=== PATIENT | male | born 1955 | race Caucasian/White ===

== ENCOUNTER 2018-01-27 15:55 | Emergency (ER) | payer SELFPAY ==
[~2018-01-27] VITALS: Ht 172.7 cm; Wt 92.5 kg
[2018-01-27] MEDS ORDERED: SULFATRIM 800-120 ML PO (16:12)
--- NOTE | 2018-01-27 16:26 | Emergency Room Report ---
History of Present Illness General Chief Complaint: Lower Extremity Injury Source: Patient Present Illness HPI Pt. presents to the ED c/o 10 out of 10 in severity localized pain and tenderness to the base of the right toe times one week. Patient reports that he initially went to an urgent care clinic which provided him with antibiotics however they did not perform any imaging. Patient states that he has been taking the antibiotics for one week and has had no improvement. He also reports no relief with rx'd T3. Patient reports significant tenderness to light touch. Patient denies fevers, chills, appreciable trauma or fall. Patient denies history of gout. Patient denies open wounds. Denies aggravating or relieving factors. Allergies: Coded Allergies: No Known Allergies (Unverified , 01/27/18) Patient History Past Medical History: see triage record Past Surgical History: none Pertinent Family History: none Reviewed Nursing Documentation: PMH: Agreed; PSxH: Agreed Nursing Documentation-PMH Past Medical History: No History, Except For Review of Systems All Other Systems: negative except mentioned in HPI Physical Exam Vital Signs Date Time Temp Pulse Resp B/P (MAP) Pulse Ox O2 Delivery O2 Flow Rate FiO2 01/27/18 16:01 97.5 85 14 158/106 98 Room Air Sp02 EP Interpretation: reviewed, normal General Appearance: no apparent distress, alert, GCS 15, non-toxic Head: normocephalic, atraumatic Eyes: bilateral eye normal inspection, bilateral eye PERRL ENT: hearing grossly normal, normal voice Neck: full range of motion Respiratory: lungs clear, speaking full sentences Cardiovascular #1: regular rate, rhythm, no edema, normal capillary refill Musculoskeletal: back normal, gait/station normal - compensated gait, ambulatory without assistance., normal range of motion, inflammation - base of the right toe., swelling - base of the right great toe, no appreciable warmth. , tender - base of the right toe. Neurologic: alert, oriented x3, responsive, motor strength/tone normal, sensory intact, speech normal, grossly normal Psychiatric: judgement/insight normal Skin: normal color, no rash, warm/dry, well hydrated Medical Decision Making PA Attestation Dr. sun is my supervising Physician whom patient management has been discussed with. Diagnostic Impression: Primary Impression: Toe fracture, right Qualified Codes: S92.414A - Nondisplaced fracture of proximal phalanx of right great toe, initial encounter for closed fracture ER Course Pt. presents to the ED c/o 10 out of 10 in severity localized pain and tenderness to the base of the right toe times one week. Patient reports that he initially went to an urgent care clinic which provided him with antibiotics however they did not perform any imaging. Patient states that he has been taking the antibiotics for one week and has had no improvement. Patient reports significant tenderness to light touch. Patient denies fevers, chills, appreciable trauma or fall. Patient denies history of gout. Patient denies open wounds. Denies aggravating or relieving factors Ddx considered but are not limited to Fracture, dislocation, contusion, Sprain/ Strain/Spasm, cellulitis, septic joint, gout, pseudogout just to name a few. Vital signs: are WNL, pt. is afebrile H&PE are most consistent with musculoskeletal injury will perform imaging to r/ o fractures/dislocations. ORDERS: - X-ray right foot 3 views - POSITIVE FOR fx to the base of the great toe. No Dislocation, or significant soft tissue injury, per preliminary read in ED, and signed by GEORGIANA Jorge, my supervising physician has reviewed, and agrees with my interpretation. ED INTERVENTIONS: - none required at this time. patient currently isn't cast shoe and he also has a cane. Patient declines crutches and states that he has some at home. -Review of [facility] web-site : patient has recurrent Rx for Soma regularly he also has that T3 prescription for which he did previously disclose. I discussed with patient that if I give him something a bit more stronger because he has been walking on his foot that he needs to discontinue use of Tylenol 3 and I also cautioned him and advised against taking any opioid in conjunction with Soma. d/w pt. due to x-ray imaging with fx. sufficient evidence to support the use of opiate, [place]. -- The pharmacist also called to verify rx whom also agreed, to caution against use with soma and to discontinue T3. DISCHARGE: At this time pt. is stable for d/c to home. Will provide printed patient care instructions, and any necessary prescriptions. Care plan and follow up instructions have been discussed with the patient prior to discharge. Other X-Ray Diagnostic Results Other X-Ray Diagnostic Results : X-Ray ordered: Right Foot # of Views/Limited Vs Complete: 3 View Indication: Pain EP Interpretation: Yes PA Xray: Interpretation reviewed, by supervising MD, and agrees with findings. Interpretation: no dislocation, no soft tissue swelling, other - Fracture noted to the distal 1st MTP, nondisplaced. Impression: Other - abnormal Electronically Signed by: Martha Jorge PA-C Last Vital Signs Date Time Temp Pulse Resp B/P (MAP) Pulse Ox O2 Delivery O2 Flow Rate FiO2 01/27/18 16:01 97.5 85 14 158/106 98 Room Air Status: improved Disposition: HOME, SELF-CARE Condition: Stable Scripts Ibuprofen* (MOTRIN*) 600 Mg Tablet 600 MG ORAL THREE TIMES A DAY, #30 TAB 0 Refills Prov: Martha Jorge 01/27/18 Hydrocodone Bit/Acetaminophen 5-325* (NORCO 5-325*) 1 Each Tablet 1 TAB ORAL Q8HR PRN for For Pain, #15 TAB 0 Refills Prov: Martha Jorge 01/27/18 Patient Instructions: Toe Fracture, [id number] Additional Instructions: Take medications as directed. Follow up with an [facility] SECURITY CONSULTANT in 3-5 days, even if your symptoms have resolved. If symptoms persist MRI may be required at the discretion of your PCP or Ortho Specialist. --Please review list of primary care clinics, if you do not already have a primary care provider who can give you an Orthopedic Referral. Return sooner to ED if new symptoms occur, or current symptoms become worse. - Please note that this Emergency Department Report was dictated using [employer] sales representative technology software, occasionally this can lead to erroneous entry secondary to interpretation by the dictation equipment. Martha Jorge Jan 27, 2018 16:26
[2018-01-27] MEDS ORDERED: IBUPROFEN600 MG ORAL (17:44)
[2018-01-27] MEDS ORDERED: NORCO 5-325 TA1 EACH ORAL (17:44)
[2018-01-27 17:53] VITALS: BP 127/78
--- NOTE | 2018-01-28 09:32 | Diagnostic Imaging Report ---
Indication: Right foot pain Technique: 3 views right foot Comparison: none Findings: No acute fractures. No dislocations. The joint spaces are preserved. Impression: Negative
== END 2018-01-27 17:54 | disposition home or self-care (01) ==
LOC: EMR 16:43
DX: S92.414A Nondisplaced fracture of proximal phalanx of right great toe, initial encounter for closed fracture (principal); X58.XXXA Exposure to other specified factors, initial encounter; Y92.9 Unspecified place or not applicable; F17.200 Nicotine dependence, unspecified, uncomplicated
CPT/HCPCS: 99283

== ENCOUNTER 2018-05-17 14:37 | Emergency (ER) | payer OTHER ==
[~2018-05-17] VITALS: Ht 172.7 cm; Wt 98.4 kg
[~2018-05-17 14:37] MED LIST: IBUPROFEN600 MG ORAL; NORCO 5-325 TA1 EACH ORAL; SULFATRIM 800-120 ML PO
[2018-05-17] MEDS ORDERED: ZOLOFT25 MG ORAL (14:54)
--- NOTE | 2018-05-17 15:15 | NUR ---
ED Nurse Note: Pt c/o left ankle swelling and pain started . Denies recent injury to his foot. Pt still able to wiggle his toes.
--- NOTE | 2018-05-17 16:04 | NUR ---
ED Nurse Note: xray taken. patient waiting in chair
--- NOTE | 2018-05-17 16:25 | Emergency Room Report ---
History of Present Illness General Chief Complaint: Lower Extremity Injury Source: Patient Present Illness HPI 62-year-old male with history of left foot fracture and hypertension currently controlled with medication here complaining of edema and pain in the left ankle vision does not recall if he has had any twisting injury and reports that he noticed the pain and swelling 3 days ago. Denies alcohol ingestion. An x-ray of the left was recently follow-up with foot fracture and healing process is within normal limits. White count tenderness, pain radiation, tingling numbness. Has taken some leftover [place] for pain. He denies chest pain, SOB, palpitations, no other injuries.pt already having crutches and wearing an ankle immobilizer Allergies: Coded Allergies: No Known Allergies (Unverified , 01/27/18) Patient History Past Medical History: see triage record Past Surgical History: unable to obtain Pertinent Family History: none Reviewed Nursing Documentation: PMH: Agreed; PSxH: Agreed Nursing Documentation-PMH History Of Psychiatric Problem: Yes - DEPRESSION Review of Systems All Other Systems: negative except mentioned in HPI Physical Exam Vital Signs Date Time Temp Pulse Resp B/P (MAP) Pulse Ox O2 Delivery O2 Flow Rate FiO2 05/17/18 14:51 99.0 92 15 125/89 96 Room Air Sp02 EP Interpretation: reviewed, normal General Appearance: normal inspection, well appearing, no apparent distress Head: normocephalic Eyes: bilateral eye normal inspection, bilateral eye PERRL ENT: normal ENT inspection, normal pharynx Neck: normal inspection, full range of motion, supple Respiratory: normal inspection, chest non-tender, no rhonchi Cardiovascular #1: normal inspection, regular rate, rhythm Gastrointestinal: normal inspection, non tender, soft Musculoskeletal: normal range of motion, non-tender, no calf tenderness, swelling - left ankle Neurologic: normal inspection, alert, oriented x3 Psychiatric: normal inspection, judgement/insight normal Skin: normal inspection, no rash, warm/dry Lymphatic: normal inspection Medical Decision Making PA Attestation all diagnosis and treatment plans were reviewed and discussed with my supervising physician Dr. Rahman Diagnostic Impression: Primary Impression: Left ankle sprain ER Course 62-year-old male with history of left foot fracture and hypertension currently controlled with medication here complaining of edema and pain in the left ankle vision does not recall if he has had any twisting injury and reports that he noticed the pain and swelling 3 days ago. Denies alcohol ingestion. An x-ray of the left was recently follow-up with foot fracture and healing process is within normal limits. White count tenderness, pain radiation, tingling numbness. Has taken some leftover [place] for pain. He denies chest pain, SOB, palpitations, no other injuries.pt already having crutches and wearing an ankle immobilizer Ddx considered but are not limited to ankle sprain, ankle fracture, DVT Vital signs: are WNL, pt. is afebrile H&PE are most consistent with ankle sprain ORDERS: ankle Xray, naproxen ED INTERVENTIONS: None required at this time. DISCHARGE: At this time pt. is stable for d/c to home. Will provide printed patient care instructions, and any necessary prescriptions. Care plan and follow up instructions have been discussed with the patient prior to discharge. wear immobilizer, follow up with primary Dr. Other X-Ray Diagnostic Results Other X-Ray Diagnostic Results : X-Ray ordered: left ankle # of Views/Limited Vs Complete: 3 View Indication: Pain EP Interpretation: Yes PA Xray: Interpretation reviewed, by supervising MD Interpretation: no dislocation, no soft tissue swelling, no fractures Impression: No acute disease Electronically Signed by: alex martino PA-C Last Vital Signs Date Time Temp Pulse Resp B/P (MAP) Pulse Ox O2 Delivery O2 Flow Rate FiO2 05/17/18 14:51 99.0 92 15 125/89 96 Room Air Disposition: HOME, SELF-CARE Condition: Stable Scripts Naproxen* (NAPROXEN*) 500 Mg Tablet 500 MG ORAL TWICE A DAY, #30 TAB Prov: Alex Rodriguez 05/17/18 Referrals: NON PHYSICIAN (PCP) Patient Instructions: Ankle Sprain Additional Instructions: follow up with primary Dr for further revaluation and MRI Alex Rodriguez May 17, 2018 16:25
[2018-05-17] MEDS ORDERED: NAPROXEN500 M2 ORAL (16:26)
[2018-05-17 16:44] VITALS: BP 125/89
--- NOTE | 2018-05-17 16:45 | NUR ---
ER DISCHARGE NOTE: Patient is cleared to be discharged per ERMD, pt is aox4, on room air, with stable vital signs. pt was given dc and prescription instructions, pt was able to verbalize understanding, pt id band removed without complications. pt is able to ambulate with steady gait. pt took all belongings.
== END 2018-05-17 16:00 | disposition home or self-care (01) ==
LOC: EMR 16:00
DX: S93.402A Sprain of unspecified ligament of left ankle, initial encounter (principal); X50.1XXA Overexertion from prolonged static or awkward postures, initial encounter; Y92.89 Other specified places as the place of occurrence of the external cause; F32.9 Major depressive disorder, single episode, unspecified
CPT/HCPCS: 99283